=== PATIENT | male | born 1950 | race Caucasian/White ===

== ENCOUNTER 2016-08-30 06:50 | Emergency (ER) | payer MEDICARE ==
[2016-08-30 07:05] VITALS: TEMP 98.2
--- NOTE | 2016-08-30 07:37 | C.PDOC ---
History Of Present Illness 66 yr old male presents to the ER with complaints of productive cough with green phlegm, sinus congestion and frontal sinus headache for the past 1 week. Patient denies fever, chest pain, SOB, nausea, vomiting, smoking, asthma, weakness or numbness. COUGH, SINUS MEGHAN X 1 WEEK. +FRONTAL SINUS DUKES. NO FEVER. DENIES HO SMOKE, ASTHMA. +PROD W GREEN PHLGEM EXAM NAD NONTOXIC HEENT +MILD SINUS MEGHAN, NO RHINORRHEA LUNGS CTA B/L NO W/R/R Time Seen by Provider: 08/30/16 07:32 Chief Complaint (Nursing): Cough, Cold, Congestion History Per: Patient History/Exam Limitations: no limitations Onset/Duration Of Symptoms: Persistent (1 week) Current Symptoms Are (Timing): Still Present Sick Contacts (Context): None Recent travel outside of the [place]: No Past Medical History Reviewed: Historical Data, Nursing Documentation, Vital Signs Vital Signs: Last Vital Signs Temp 98.2 F 08/30/16 06:58 Pulse 85 08/30/16 06:58 Resp 22 08/30/16 06:58 BP 179/106 H 08/30/16 06:58 Pulse Ox 95 08/30/16 08:01 - Medical History PMH: HTN (taking meds sometimes) Family History: States: No Known Family Hx - Social History Hx Tobacco Use: No Hx Alcohol Use: Yes Hx Substance Use: No - Immunization History Hx Tetanus Toxoid Vaccination: No Hx Influenza Vaccination: Yes Hx Pneumococcal Vaccination: No Review Of Systems Except As Marked, All Systems Reviewed And Found Negative. Constitutional: Negative for: Fever ENT: Positive for: Other ((+) Sinus congestion ) Cardiovascular: Negative for: Chest Pain Respiratory: Positive for: Cough (with green phelgm). Negative for: Shortness of Breath Gastrointestinal: Negative for: Nausea, Vomiting Neurological: Positive for: Headache (Frontal sinus headache ). Negative for: Weakness, Numbness Physical Exam - Physical Exam Appears: Non-toxic, No Acute Distress Skin: Warm, Dry, No Rash Head: Atraumatic, Normacephalic Eye(s): bilateral: Normal Inspection, PERRL, EOMI Ear(s): Bilateral: Normal Nose: No Discharge, Other ((+) Mild sinus congestion ) Oral Mucosa: Moist Throat: Normal, No Erythema, No Exudate, No Drooling Neck: Normal, Normal ROM, Supple Chest: Symmetrical, No Tenderness Cardiovascular: Rhythm Regular, No Friction Rub, No Murmur Respiratory: Normal Breath Sounds, No Rales, No Rhonchi, No Stridor, No Wheezing Gastrointestinal/Abdominal: Normal Exam, Soft, No Tenderness, No Guarding, No Rebound Extremity: Normal ROM, No Swelling Neurological/Psych: Oriented x3, Normal Speech, Normal Motor Gait: Steady ED Course And Treatment O2 Sat by Pulse Oximetry: 95 Pulse Ox Interpretation: Normal - Radiology CXR: Interpreted by Me CXR Interpretation: Yes: No Acute Disease Medical Decision Making Medical Decision Making: PLAN: * CXR Disposition Counseled Patient/Family Regarding: Studies Performed, Diagnosis, Need For Followup, Rx Given - Disposition Referrals: [facility] [Outside] [facility] [Outside] Disposition: HOME/ ROUTINE Disposition Time: 08:41 Condition: GOOD Prescriptions: Oxymetazoline 0.05% [Oxymetazoline HCl 30 Ml] 3 ml NS BID #1 bottle Benzonatate [Tessalon Perle] 200 mg PO TID PRN #21 capsule PRN Reason: Cough Instructions: Sinusitis (ED), Acute Bronchitis (ED) Forms: Work Excuse Print Language: ROMANSH - Clinical Impression Clinical Impression: Sinusitis, Bronchitis - Scribe Statement The provider has reviewed the documentation as recorded by the Rosanna Tolliver Provider Attestation: All medical record entries made by the Calvinibdemetrius were at my direction and personally dictated by me. I have reviewed the chart and agree that the record accurately reflects my personal performance of the history, physical exam, medical decision making, and the department course for this patient. I have also personally directed, reviewed, and agree with the discharge instructions and disposition.
[2016-08-30 08:52] VITALS: BP 153/93; PULSE 75; RESP 18; O2SAT 98
--- NOTE | 2016-08-30 12:37 | RAD ---
HISTORY: cough COMPARISON: Bold TECHNIQUE: Chest PA and lateral FINDINGS: LUNGS: No active pulmonary disease. PLEURA: No significant pleural effusion identified. No pneumothorax apparent. CARDIOVASCULAR: Normal. OSSEOUS STRUCTURES: Minor multilevel degenerative spondylosis of the thoracic spine VISUALIZED UPPER ABDOMEN: Normal. OTHER FINDINGS: None. IMPRESSION: No active disease.
== END 2016-08-30 08:53 | disposition home or self-care (01) ==
LOC: C.ER 06:50
DX: J40 Bronchitis, not specified as acute or chronic (principal); J32.9 Chronic sinusitis, unspecified

== ENCOUNTER 2018-10-16 11:47 | Emergency (ER) | payer MEDICARE ==
[2018-10-16 11:59] VITALS: RESP 18; TEMP 98.9
--- NOTE | 2018-10-16 13:36 | C.PDOC ---
History Of Present Illness 68 y/o male, with history of hypertension and anxiety, comes in to ED complaining of one week history of not being able to sleep and ran out of ativan 4 days ago. Also complains of whole body weakness for the past week. Patient is lying down comfortably and has an empty bottle of Ativan 1mg TID one month supply #90 from 08/28/[address] Canales. Time Seen by Provider: 10/16/18 13:27 Chief Complaint (Nursing): Weakness/Neurological Deficit History Per: Patient History/Exam Limitations: no limitations Onset/Duration Of Symptoms: Days Current Symptoms Are (Timing): Still Present Past Medical History Reviewed: Historical Data, Nursing Documentation, Vital Signs Vital Signs: Last Vital Signs Temp 98.9 F 10/16/18 11:55 Pulse 72 10/16/18 11:55 Resp 18 10/16/18 11:55 BP 143/85 10/16/18 11:55 Pulse Ox 98 10/16/18 11:55 Primary Care Provider: Jacinto Vieyra - Medical History PMH: Anxiety, Benign Prostatic Hyperplasia, HTN (taking meds sometimes), Hypercholesterolemia Denies: Chronic Kidney Disease Family History: States: No Known Family Hx - Social History Hx Tobacco Use: No Hx Alcohol Use: Yes Hx Substance Use: No - Immunization History Hx Tetanus Toxoid Vaccination: No Hx Influenza Vaccination: Yes Hx Pneumococcal Vaccination: No Review Of Systems Constitutional: Positive for: Weakness, Other (Difficulty sleeping). Negative for: Fever, Chills Cardiovascular: Negative for: Chest Pain Respiratory: Negative for: Cough, Shortness of Breath Gastrointestinal: Negative for: Nausea, Vomiting, Abdominal Pain Genitourinary: Negative for: Dysuria Skin: Negative for: Rash Neurological: Negative for: Weakness, Numbness Physical Exam - Physical Exam Appears: Non-toxic, No Acute Distress Skin: Warm, Dry Head: Normacephalic Eye(s): bilateral: PERRL Oral Mucosa: Moist Neck: Supple Cardiovascular: Rhythm Regular, No Murmur Respiratory: No Rales, No Rhonchi, No Wheezing, Other (clear to auscultation bilaterally) Gastrointestinal/Abdominal: Soft, No Tenderness Extremity: Bilateral: Atraumatic, Normal Color And Temperature Neurological/Psych: Oriented x3, Normal Speech, Normal Cognition, Normal Cranial Nerves, Normal Motor, Normal Sensation ED Course And Treatment - Laboratory Results Result Diagrams: 10/16/18 13:57 10/16/18 13:57 O2 Sat by Pulse Oximetry: 98 (RA) Pulse Ox Interpretation: Normal - CT Scan/US head CT Other Rad Studies (CT/US): Read By Radiologist, Radiology Report Reviewed CT/US Interpretation: IMPRESSION: 1. 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 No evidence for obstructive hydrocephalus. 2. 3.6 x 2.4 x 4.1 cm left paramedian retro cerebellar CSF density lesion is statistically most compatible with an arachnoid cyst. 3. Mild age-related global parenchymal volume loss. Medical Decision Making Medical Decision Making: Plan: --Head CT --EKG --UA --Labs 1455 pt resting comfortably on stretcher. no acute distress. labs, urine and head ct normal. spoke with pt's psychiatrist Dr Canales; sts pt can come to office tomorrow for medication refill. Disposition Counseled Patient/Family Regarding: Studies Performed, Diagnosis, Need For Followup, Rx Given - Disposition Referrals: Jacinto Vieyra MD [Medical Doctor] - Sterling Bojorquez MD [Medical Doctor] - Disposition: HOME/ ROUTINE Disposition Time: 15:49 Condition: GOOD Additional Instructions: Rachel ms lquidos. Usted jorge vinicius estevez de benadryl (difenhidramina) a la hora de acostarse para ayudarlo a dormir. Hernan un seguimiento con el Dr. Jose Daniel godfrey en [place] consultorio para volver a surtir maxine medicamentos y hernan vinicius josephine de seguimiento con jeromy parekh recomendamos que hernan un seguimiento en la clnica o con velasquez mdico para un examen general y vinicius revisin del medicamento para la presin arterial. Drink more fluids. You make take one table of benadryl (diphenhydramine) at bedtime to help you sleep. Follow up with Dr Sky tomorrow in his office for medication refill and make a follow up appointment with him, also recommend you follow up with medical clinic or your doctor for general check up and review of blood pressure medicine. Forms: [employer] (Wallisian), General Discharge Instructions - Clinical Impression Clinical Impression: Fatigue - PA / CONSULTING ANALYST / Resident Statement MD/DO has reviewed & agrees with the documentation as recorded. - Scribe Statement The provider has reviewed the documentation as recorded by the Scribe Madina Arciniega All medical record entries made by the Calvinibe were at my direction and personally dictated by me. I have reviewed the chart and agree that the record accurately reflects my personal performance of the history, physical exam, medical decision making, and the department course for this patient. I have also personally directed, reviewed, and agree with the discharge instructions and disposition.
[2018-10-16 14:03] LABS: BASO # 0.1 K/uL (0.0-0.2); BASO % 0.8 % (0.0-2.0); EOS % 0.2 % (0.0-4.0); HEMOGLOBIN 14.2 g/dL (12.0-18.0); LYMPH # 2.1 K/uL (1.0-4.3); LYMPH % 25.2 % (20.0-40.0); MEAN CORPUSCULAR HEMOGLOBIN 31.3 pg (27.0-31.0); MEAN CORPUSCULAR HGB CONC 35.6 g/dL (33.0-37.0); MEAN PLATELET VOLUME 7.5 fL (7.2-11.7); MONO # 0.4 K/uL (0.0-0.8); MONO % 4.3 % (0.0-10.0); NEUT # 5.7 K/uL (1.8-7.0); NEUT % 69.5 % (50.0-75.0); NRBC % 0.1 % (0.0-2.0); RBC 4.54 Mil/uL (4.40-5.90); RED CELL DISTRIBUTION WIDTH 13.6 % (11.5-14.5)
[2018-10-16 14:06] LABS: WHITE BLOOD COUNT 8.2 K/uL (4.8-10.8)
--- NOTE | 2018-10-16 14:33 | CT ---
Date of service: 10/16/2018 PROCEDURE: CT HEAD WITHOUT CONTRAST. HISTORY: Dizziness COMPARISON: None available. TECHNIQUE: Axial computed tomography images were obtained through the head/brain without intravenous contrast. Radiation dose: Total exam DLP = 1033.41 mGy-cm. This CT exam was performed using one or more of the following dose reduction techniques: Automated exposure control, adjustment of the mA and/or kV according to patient size, and/or use of iterative reconstruction technique. FINDINGS: HEMORRHAGE: No intracranial hemorrhage. BRAIN: Solano-white matter differentiation is preserved. There is a 1.4 x 1.4 cm well-circumscribed round hyperdense lesion at the foramen Rojas. There is a 3.6 x 2.4 x 4.1 cm CSF density extra-axial mass in the left paramedian retrocerebellar region. There is mass effect or abnormal extra-axial fluid collection. There is no territorial infarction. VENTRICLES: There is mild age-related global parenchymal volume loss and proportionate enlargement of the ventricles and cortical sulci. CALVARIUM: There is no calvarial fracture or extracranial soft tissue swelling. PARANASAL SINUSES: There is moderate mucoperiosteal thickening in the ethmoid air cells and maxillary sinuses and mucosal thickening with aerosolized secretions in the sphenoid sinus MASTOID AIR CELLS: Predominantly clear. OTHER FINDINGS: None. IMPRESSION: 1. 1.4 x 1.4 cm colloid cyst at the foraminal of Rojas. No evidence for obstructive hydrocephalus. 2. 3.6 x 2.4 x 4.1 cm left paramedian retro cerebellar CSF density lesion is statistically most compatible with an arachnoid cyst. 3. Mild age-related global parenchymal volume loss.
[2018-10-16 14:43] LABS: ALB/GLOB RATIO 1.7 (1.0-2.1); ALBUMIN 4.5 g/dL (3.5-5.0); ALT/SGPT 26 U/L (21-72); AST/SGOT 27 U/L (17-59); BLOOD UREA NITROGEN 16 mg/dL (9-20); CALCIUM 9.5 mg/dl (8.6-10.4); GFR NON-AFRICAN AMERICAN > 60
[2018-10-16] MEDS ORDERED: Sodium Chloride 0.9% 1,000 ML IV ONE (15:19)
[2018-10-16 15:20] LABS: URINE BILIRUBIN NEGATIVE (NEGATIVE); URINE BLOOD NEGATIVE (NEGATIVE); URINE CLARITY Clear (Clear); URINE COLOR Straw (YELLOW); URINE GLUCOSE (UA) NORMAL (Normal); URINE LEUKOCYTE ESTERASE NEG Leu/uL (Negative); URINE PROTEIN NEGATIVE (NEGATIVE); URINE UROBILINOGEN NORMAL mg/dL (0.2-1.0)
[2018-10-16] MEDS ORDERED: Sodium Chloride 0.9% 1,000 ML ONE (15:46)
[2018-10-16 15:57] VITALS: BP 120/84; PULSE 67; O2SAT 97
== END 2018-10-16 16:02 | disposition home or self-care (01) ==
LOC: C.ER 11:47
DX: R53.83 Other fatigue (principal); I10 Essential (primary) hypertension; E78.00 Pure hypercholesterolemia, unspecified; F41.9 Anxiety disorder, unspecified
CPT/HCPCS: 70450; 80053; 81001; 82948; 84484; 85025; 96360; 99285; J7030

== ENCOUNTER 2018-11-05 07:00 | Observation (INO) | payer MEDICARE ==
[2018-11-05] MEDS ORDERED: Aspirin 325 mg EC Tablets PO STA (07:45)
--- NOTE | 2018-11-05 07:48 | C.PDOC ---
History Of Present Illness 68 year old male presents to the emergency department with complaints of left- sided chest pain since last night. Patient reports a history of hypertension. He states that he has had this pain in the past; reports taking nothing for the pain. He denies history of diabetes or allergies to medicine. He also denies radiation of the pain. He denies fever, chills, shortness of breath, nausea, vomiting, diarrhea. Time Seen by Provider: 11/05/18 07:18 Chief Complaint (Nursing): Chest Pain History Per: Patient History/Exam Limitations: language barrier (Last Waxer: CHANA Fry) Onset/Duration Of Symptoms: Days (1) Current Symptoms Are (Timing): Still Present Quality: "Pain" Associated Symptoms: denies: Nausea, Dyspnea, Diaphoresis Exacerbating Factors: None Past Medical History Reviewed: Historical Data, Nursing Documentation, Vital Signs Vital Signs: Last Vital Signs Temp 97.8 F 11/05/18 07:27 Pulse 68 11/05/18 07:27 Resp 16 11/05/18 07:27 BP 155/81 H 11/05/18 07:27 Pulse Ox 99 11/05/18 07:27 Primary Care Provider: Jacinto Vieyra - Medical History PMH: Anxiety, Benign Prostatic Hyperplasia, HTN (taking meds sometimes), Hypercholesterolemia Denies: Chronic Kidney Disease Surgical History: No Surg Hx Family History: States: No Known Family Hx - Social History Hx Tobacco Use: No Hx Alcohol Use: Yes Hx Substance Use: No - Immunization History Hx Tetanus Toxoid Vaccination: No Hx Influenza Vaccination: Yes Hx Pneumococcal Vaccination: No Review Of Systems Except As Marked, All Systems Reviewed And Found Negative. Constitutional: Negative for: Fever, Chills Cardiovascular: Positive for: Chest Pain Respiratory: Negative for: Cough, Shortness of Breath Gastrointestinal: Negative for: Nausea, Vomiting, Abdominal Pain, Diarrhea Physical Exam - Physical Exam Appears: Non-toxic, No Acute Distress Skin: Normal Color, Warm, Dry Head: Atraumatic, Normacephalic Eye(s): bilateral: Normal Inspection Neck: Normal, Supple Chest: Symmetrical, No Tenderness Cardiovascular: Rhythm Regular, No Murmur Respiratory: Normal Breath Sounds, No Rales, No Rhonchi, No Wheezing Gastrointestinal/Abdominal: Soft, No Tenderness, No Guarding, No Rebound Extremity: Normal ROM Neurological/Psych: Oriented x3, Normal Speech, Normal Cognition ED Course And Treatment - Laboratory Results Result Diagrams: 11/05/18 07:47 11/05/18 07:47 ECG Rhythm: Sinus Rhythm ECG Interpretation: Normal Interpretation Of ECG: Normal intervals, normal axis. Rate From EC O2 Sat by Pulse Oximetry: 99 (RA) Pulse Ox Interpretation: Normal Medical Decision Making Medical Decision Making: Plan: Chemistry CBC CXR Aspirin 325mg PO Nitrostat Disposition Counseled Patient/Family Regarding: Studies Performed, Diagnosis - Disposition Disposition: HOSPITALIZED Disposition Time: 10:50 Condition: STABLE - Clinical Impression Clinical Impression: Chest pain - Scribe Statement The provider has reviewed the documentation as recorded by the Scribe Provider Attestation: All medical record entries made by the Scribe were at my direction and personally dictated by me. I have reviewed the chart and agree that the record accurately reflects my personal performance of the history, physical exam, m edical decision making, and the department course for this patient. I have also personally directed, reviewed, and agree with the discharge instructions and disposition.
[2018-11-05 07:51] LABS: HEMOGLOBIN 14.8 g/dL (12.0-18.0); MEAN CELL VOLUME 87.8 fL (80.0-94.0); MEAN CORPUSCULAR HEMOGLOBIN 31.1 pg (27.0-31.0); MEAN CORPUSCULAR HGB CONC 35.4 g/dL (33.0-37.0); MEAN PLATELET VOLUME 7.5 fL (7.2-11.7); RBC 4.75 Mil/uL (4.40-5.90); RED CELL DISTRIBUTION WIDTH 13.7 % (11.5-14.5); WHITE BLOOD COUNT 8.2 K/uL (4.8-10.8)
[2018-11-05 08:18] LABS: CK-MB 3.32 ng/mL (0.0-3.38)
[2018-11-05 08:30] LABS: ALB/GLOB RATIO 1.3 (1.0-2.1); ALBUMIN 4.2 g/dL (3.5-5.0); ALT/SGPT 32 U/L (21-72); AST/SGOT 28 U/L (17-59); BLOOD UREA NITROGEN 16 mg/dL (9-20); CALCIUM 9.5 mg/dl (8.6-10.4); GFR NON-AFRICAN AMERICAN > 60
[2018-11-05] MEDS: Potassium Chloride 20 mEq ER Tab PO SCH (12:36)
[2018-11-05] MEDS: Enoxaparin 40 mg Syringe SC SCH (12:37)
[2018-11-05] MEDS: Pantoprazole 40 mg EC Tab PO SCH (12:54)
[2018-11-05 13:29] LABS: HDL CHOLESTEROL 67 mg/dL (30-70)
[2018-11-05 13:40] LABS: LDL CHOLESTEROL 96 mg/dL (0-129)
[2018-11-05 13:42] LABS: CK-MB 2.48 ng/mL (0.0-3.38)
[2018-11-05 16:07] LABS: BARBITURATES, UR NEGATIVE (NEGATIVE); BENZODIAZEPINES, UR NEGATIVE (NEGATIVE); OPIATES, UR NEGATIVE (NEGATIVE); PHENCYCLIDINE, UR NEGATIVE (NEGATIVE)
--- NOTE | 2018-11-05 17:19 | RAD ---
Date of service: 11/05/2018 PROCEDURE: CHEST RADIOGRAPH, 1 VIEW HISTORY: chest pain COMPARISON: 08/30/2026 FINDINGS: LUNGS: Clear. PLEURA: No pneumothorax or pleural fluid seen. CARDIOVASCULAR: No aortic atherosclerotic calcification present. Normal. OSSEOUS STRUCTURES: No significant abnormalities. VISUALIZED UPPER ABDOMEN: Normal. OTHER FINDINGS: None. IMPRESSION: No active disease.
--- NOTE | 2018-11-05 22:23 | CP.PCM.CON ---
History of Present Illness - History of Present Illness History of Present Illness: CC: Chest Pain 68 year old male presents to the emergency department with complaints of left- sided chest pain since last night. Patient reports a history of hypertension. He states that he has had this pain in the past; reports taking nothing for the pain. He denies history of diabetes or allergies to medicine. He also denies radiation of the pain. He denies fever, chills, shortness of breath, nausea, vomiting, diarrhea. Chief Complaint (Nursing): Chest Pain History Per: Patient History/Exam Limitations: language barrier (Construction Assistant: Logistics Intern) Onset/Duration Of Symptoms: Days (1) Current Symptoms Are (Timing): Still Present Quality: "Pain" Associated Symptoms: denies: Nausea, Dyspnea, Diaphoresis Exacerbating Factors: None Past Medical History Reviewed: Historical Data, Nursing Documentation, Vital Signs Vital Signs: Last Vital Signs Temp 97.8 F 11/05/18 07:27 Pulse 68 11/05/18 07:27 Resp 16 11/05/18 07:27 BP 155/81 H 11/05/18 07:27 Pulse Ox 99 11/05/18 07:27 Primary Care Provider: Jacinto Vieyra - Medical History PMH: Anxiety, Benign Prostatic Hyperplasia, HTN (taking meds sometimes), Hypercholesterolemia Denies: Chronic Kidney Disease Surgical History: No Surg Hx Family History: States: No Known Family Hx - Social History Hx Tobacco Use: No Hx Alcohol Use: Yes Hx Substance Use: No - Immunization History Hx Tetanus Toxoid Vaccination: No Hx Influenza Vaccination: Yes Hx Pneumococcal Vaccination: No Review Of Systems Except As Marked, All Systems Reviewed And Found Negative. Constitutional: Negative for: Fever, Chills Cardiovascular: Positive for: Chest Pain Respiratory: Negative for: Cough, Shortness of Breath Gastrointestinal: Negative for: Nausea, Vomiting, Abdominal Pain, Diarrhea Physical Exam - Physical Exam Appears: Non-toxic, No Acute Distress Skin: Normal Color, Warm, Dry Head: Atraumatic, Normacephalic Eye(s): bilateral: Normal Inspection Neck: Normal, Supple Chest: Symmetrical, No Tenderness Cardiovascular: Rhythm Regular, No Murmur Respiratory: Normal Breath Sounds, No Rales, No Rhonchi, No Wheezing Gastrointestinal/Abdominal: Soft, No Tenderness, No Guarding, No Rebound Extremity: Normal ROM Neurological/Psych: Oriented x3, Normal Speech, Normal Cognition Past Patient History - Past Social History Smoking Status: Never Smoked - CARDIAC Hx Hypercholesterolemia: Yes Hx Hypertension: Yes (taking meds sometimes) - PULMONARY Hx Respiratory Disorders: No - NEUROLOGICAL Hx Neurological Disorder: No - HEENT Hx HEENT Problems: No - RENAL Hx Chronic Kidney Disease: No - ENDOCRINE/METABOLIC Hx Endocrine Disorders: No - HEMATOLOGICAL/ONCOLOGICAL Hx Blood Disorders: No - INTEGUMENTARY Hx Dermatological Problems: No - MUSCULOSKELETAL/RHEUMATOLOGICAL Hx Musculoskeletal Disorders: No - GASTROINTESTINAL Hx Gastrointestinal Disorders: No - GENITOURINARY/GYNECOLOGICAL Hx Genitourinary Disorders: Yes - PSYCHIATRIC Hx Anxiety: Yes Hx Substance Use: No - SURGICAL HISTORY Hx Surgeries: Yes Other/Comment: PROSTATE BIOPSY - ANESTHESIA Hx Anesthesia: Yes Hx Anesthesia Reactions: No Meds Allergies/Adverse Reactions: Allergies Allergy/AdvReac Type Severity Reaction Status Date / Time No Known Allergies Allergy Verified 11/05/18 07:30 - Medications Medications: Current Medications Aspirin (Aspirin Chewable) 81 mg PO DAILY COUNT INCLUDES [facility] Last Admin: 11/05/18 12:37 Dose: Not Given Enoxaparin Sodium (Lovenox) 40 mg SC DAILY COUNT INCLUDES THE [facility] Last Admin: 11/05/18 12:37 Dose: 40 mg Lorazepam (Ativan) 1 mg PO TID PRN PRN Reason: Anxiety Last Admin: 11/05/18 17:58 Dose: 1 mg Losartan Potassium (Cozaar) 100 mg PO DAILY COUNT INCLUDES THE [facility] Last Admin: 11/05/18 12:36 Dose: 100 mg Metoprolol Tartrate (Lopressor) 25 mg PO BID COUNT INCLUDES THE [facility] Last Admin: 11/05/18 17:57 Dose: 25 mg Pantoprazole Sodium (Protonix Ec Tab) 40 mg PO DAILY COUNT INCLUDES THE [facility] Last Admin: 11/05/18 12:54 Dose: 40 mg Pneumococcal Polyvalent Vaccine (Pneumovax 23 Vaccine) 0.5 ml IM .ONCE ONE Stop: 11/07/18 10:01 Potassium Chloride (K-Dur 20 Meq Er Tab) 40 meq PO DAILY COUNT INCLUDES THE [facility] Last Admin: 11/05/18 12:36 Dose: 40 meq Rosuvastatin Calcium (Crestor) 10 mg PO HS COUNT INCLUDES THE [facility] Last Admin: 11/05/18 21:23 Dose: 10 mg Zolpidem Tartrate (Ambien) 5 mg PO HS PRN PRN Reason: Insomnia Last Admin: 11/05/18 21:23 Dose: 5 mg Results - Vital Signs Recent Vital Signs: Last Vital Signs Temp 98.0 F 11/05/18 16:24 Pulse 74 11/05/18 16:24 Resp 20 11/05/18 16:24 BP 148/77 11/05/18 17:57 Pulse Ox 97 11/05/18 16:24 - Labs Result Diagrams: 11/05/18 07:47 11/05/18 07:47 Labs: Laboratory Results - last 24 hr 11/05/18 11/05/18 11/05/18 07:47 07:47 13:12 WBC 8.2 RBC 4.75 Hgb 14.8 Hct 41.7 MCV 87.8 MCH 31.1 H MCHC 35.4 RDW 13.7 Plt Count 286 MPV 7.5 Sodium 136 Potassium 3.5 L Chloride 101 Carbon Dioxide 26 Anion Gap 12 BUN 16 Creatinine 0.8 Est GFR ( Amer) > 60 Est GFR (Non-Af Amer) > 60 Random Glucose 100 Hemoglobin A1c Calcium 9.5 Total Bilirubin 0.9 AST 28 ALT 32 Alkaline Phosphatase 75 Total Creatine Kinase 148 117 CK-MB (Mass) 3.32 2.48 Troponin I < 0.0120 < 0.0120 Total Protein 7.4 Albumin 4.2 Globulin 3.2 Albumin/Globulin Ratio 1.3 Triglycerides 80 Cholesterol 175 LDL Cholesterol Direct 96 HDL Cholesterol 67 TSH 3rd Generation 0.86 Urine Opiates Screen Urine Methadone Screen Ur Barbiturates Screen Ur Phencyclidine Scrn Ur Amphetamines Screen U Benzodiazepines Scrn U Oth Cocaine Metabols U Cannabinoids Screen 11/05/18 11/05/18 11/05/18 13:12 15:40 19:20 WBC RBC Hgb Hct MCV MCH MCHC RDW Plt Count MPV Sodium Potassium Chloride Carbon Dioxide Anion Gap BUN Creatinine Est GFR ( Amer) Est GFR (Non-Af Amer) Random Glucose Hemoglobin A1c 5.3 Calcium Total Bilirubin AST ALT Alkaline Phosphatase Total Creatine Kinase CK-MB (Mass) Troponin I < 0.0120 Total Protein Albumin Globulin Albumin/Globulin Ratio Triglycerides Cholesterol LDL Cholesterol Direct HDL Cholesterol TSH 3rd Generation Urine Opiates Screen Negative Urine Methadone Screen Negative Ur Barbiturates Screen Negative Ur Phencyclidine Scrn Negative Ur Amphetamines Screen Negative U Benzodiazepines Scrn Negative U Oth Cocaine Metabols Negative U Cannabinoids Screen Negative Assessment & Plan - Assessment and Plan (Free Text) Assessment: 1. Chest Pain 2. HTN 3. Hyperlipidemia Check ECHO and Stress Test on Tuesday
[2018-11-06] MEDS: Potassium Chloride 20 mEq ER Tab PO SCH (09:21)
[2018-11-06] MEDS: Pantoprazole 40 mg EC Tab PO SCH (09:21)
[2018-11-06] MEDS: Enoxaparin 40 mg Syringe SC SCH (09:22)
--- NOTE | 2018-11-06 19:51 | CP.PCM.PN ---
Subjective - Date & Time of Evaluation Date of Evaluation: 11/06/18 Time of Evaluation: 19:50 - Subjective Subjective: Patient seen and evaluated No new events noted Review Of Systems Except As Marked, All Systems Reviewed And Found Negative. Constitutional: Negative for: Fever, Chills Cardiovascular: Positive for: Chest Pain Respiratory: Negative for: Cough, Shortness of Breath Gastrointestinal: Negative for: Nausea, Vomiting, Abdominal Pain, Diarrhea Physical Exam - Physical Exam Appears: Non-toxic, No Acute Distress Skin: Normal Color, Warm, Dry Head: Atraumatic, Normacephalic Eye(s): bilateral: Normal Inspection Neck: Normal, Supple Chest: Symmetrical, No Tenderness Cardiovascular: Rhythm Regular, No Murmur Respiratory: Normal Breath Sounds, No Rales, No Rhonchi, No Wheezing Gastrointestinal/Abdominal: Soft, No Tenderness, No Guarding, No Rebound Extremity: Normal ROM Neurological/Psych: Oriented x3, Normal Speech, Normal Cognition Assessment & Plan - Assessment and Plan (Free Text) Assessment: 1. Chest Pain 2. HTN 3. Hyperlipidemia Check ECHO and Stress Test in am Objective - Vital Signs/Intake and Output Vital Signs (last 24 hours): Temp Pulse Resp BP Pulse Ox 97.7 F 62 203 H 123/69 97 11/06/18 15:00 11/06/18 19:33 11/06/18 15:00 11/06/18 17:47 11/06/18 15:00 - Medications Medications: Current Medications Aspirin (Aspirin Chewable) 81 mg PO DAILY [facility] Last Admin: 11/06/18 09:21 Dose: 81 mg Enoxaparin Sodium (Lovenox) 40 mg SC DAILY [facility] Last Admin: 11/06/18 09:22 Dose: 40 mg Lorazepam (Ativan) 1 mg PO TID PRN PRN Reason: Anxiety Last Admin: 11/05/18 17:58 Dose: 1 mg Losartan Potassium (Cozaar) 100 mg PO DAILY [facility] Last Admin: 11/06/18 09:21 Dose: 100 mg Metoprolol Tartrate (Lopressor) 25 mg PO BID [facility] Last Admin: 11/06/18 17:47 Dose: 25 mg Pantoprazole Sodium (Protonix Ec Tab) 40 mg PO DAILY [facility] Last Admin: 11/06/18 09:21 Dose: 40 mg Pneumococcal Polyvalent Vaccine (Pneumovax 23 Vaccine) 0.5 ml IM .ONCE ONE Stop: 11/07/18 10:01 Potassium Chloride (K-Dur 20 Meq Er Tab) 40 meq PO DAILY [facility] Last Admin: 11/06/18 09:21 Dose: 40 meq Rosuvastatin Calcium (Crestor) 10 mg PO HS [facility] Last Admin: 11/05/18 21:23 Dose: 10 mg Zolpidem Tartrate (Ambien) 5 mg PO HS PRN PRN Reason: Insomnia Last Admin: 11/05/18 21:23 Dose: 5 mg - Labs Labs: 11/05/18 07:47 11/05/18 07:47
--- NOTE | 2018-11-06 20:59 | PCM.PSYCH ---
Initial Psychiatric Evaluation - Initial Psychiatric Evaluation Type of Admission: Voluntary Legal Status: Capacity Chief Complaint (in patient's own words): "I have anxiety" Patient's Reaction to Hospitalization: Patient is a 68 year old Male, a consult referral for anxiety. The evaluation was completed using [employer] with a erp manager. Patient reports that he has a history of anxiety and is currently being treated by his p sychiatrist Dr. Dhiraj Bojorquez with Ativan. Patient also reports that he was once taking Sertraline, but he stopped because it was making him more anxious. Patient reports that his anxiety is usually precipitated by his sleep, he reports having breathing problems when he sleep as he snores, and he gets SOB and gets panic attacks. Patient denies any past psychiatric hospitalizations, he denies any suicide or suicide attempts in the past. He denies depressive mood, denies delusions, paranoid or hallucination. He reports that his appetite is good. Patient currently lives alone, and is unemployed, but his daughter lives close to his house, his [place], he reports that his family are supportive. Denies SI/HI at this time of evaluation PsychHx: Anxiety - Takes Ativan, drinks alcohol socially, denies tobacco use, denies substance use PMhx: BPH, HTN, Hypercholestrolemia FamHx: Denies Current Medications: Active Medications Generic Name Dose Route Start Last Admin Trade Name Freq PRN Reason Stop Dose Admin Aspirin 81 mg 11/05/18 12:15 11/06/18 09:21 Aspirin Chewable PO 81 mg DAILY [facility] Administration Enoxaparin Sodium 40 mg 11/05/18 12:15 11/06/18 09:22 Lovenox SC 40 mg DAILY [facility] Administration Lorazepam 1 mg 11/05/18 12:11 11/05/18 17:58 Ativan PO 1 mg TID PRN Administration Anxiety Losartan Potassium 100 mg 11/05/18 12:15 11/06/18 09:21 Cozaar PO 100 mg DAILY [facility] Administration Metoprolol Tartrate 25 mg 11/05/18 18:00 11/06/18 17:47 Lopressor PO 25 mg BID [facility] Administration Pantoprazole Sodium 40 mg 11/05/18 13:00 11/06/18 09:21 Protonix Ec Tab PO 40 mg DAILY [facility] Administration Pneumococcal Polyvalent Vaccine 0.5 ml 11/07/18 10:00 Pneumovax 23 Vaccine IM 11/07/18 10:01 .ONCE ONE Potassium Chloride 40 meq 11/05/18 12:15 11/06/18 09:21 K-Dur 20 Meq Er Tab PO 40 meq DAILY [facility] Administration Rosuvastatin Calcium 10 mg 11/05/18 22:00 11/05/18 21:23 Crestor PO 10 mg HS [facility] Administration Zolpidem Tartrate 5 mg 11/05/18 14:07 11/05/18 21:23 Ambien PO 5 mg HS PRN Administration Insomnia Past Psychiatric History - Past Psychiatric History Pertinent Medical Hx (Current Medical&Sleep Prob, Allergies): Allergies Allergy/AdvReac Type Severity Reaction Status Date / Time No Known Allergies Allergy Verified 11/05/18 07:30 LORazepam [Ativan] 1 mg PO TID PRN 10/16/18 Lisinopril/Hydrochlorothiazide [Lisinopril-Hctz 20-12.5 mg Tab] 1 each PO DAILY 10/16/18 Metoprolol Tartrate 25 mg PO BID 10/16/18 Simvastatin 20 mg PO DAILY 10/16/18 Valsartan/Hydrochlorothiazide [Valsartan-Hctz 160-12.5 mg Tab] 160 mg PO DAILY 11/05/18 Review of Systems - Psychiatric Psychiatric: As Per HPI, Anxiety, Behavioral Changes, Difficulty Concentrating Mental Status Examination - Personal Presentation Personal Presentation: Looks stated age - Affect Affect: Broad - Motor Activity Motor Activity: Calm - Reliability in Providing Information Reliability in Providing Information: Fair - Speech Speech: Relevant, Coherent - Mood Mood: Anxious, Neutral - Formal Thought Process Formal Thought Process: No Impairment - Obsessions/Compulsions Obsessions: None Compulsions: None - Cognitive Functions Orientation: Person, Place, Situation, Time Sensorium: Alert Attention/Concentration: Attentive Estimate of Intelligence: Average Judgement: Intact, as evidence by: Good judgement Memory: Recent intact, as evidence by: 3/3 object recall - Risk Risk: Diminished functioning - Strength & Assets Inventory Strength & Assets Inventory: Life experience - Limitations Limitations: Living alone DSM 5 DX - DSM 5 DSM 5 Diagnosis: Generalized anxiety disorder severe - Recommended/Plan of Treatment Treatment Recommendations and Plan of Treatment: Start home medication - Ativan 1 mg TID, PRN anxiety As need medications All risks, benefits and alternatives of the meds discussed, and the pt agreed and understood. Psychoeducation and support daily Encourage compliance with meds and after care Refer to outpatient program Teach healthy lifestyle methods, i.e. diet, exercise, meditation 32 min
--- NOTE | 2018-11-06 22:05 | CP.PCM.HP ---
Present on Admission - Present on Admission Any Indicators Present on Admission: No Past Patient History - Past Social History Smoking Status: Never Smoked - CARDIAC Hx Hypercholesterolemia: Yes Hx Hypertension: Yes (taking meds sometimes) - PULMONARY Hx Respiratory Disorders: No - NEUROLOGICAL Hx Neurological Disorder: No - HEENT Hx HEENT Problems: No - RENAL Hx Chronic Kidney Disease: No - ENDOCRINE/METABOLIC Hx Endocrine Disorders: No - HEMATOLOGICAL/ONCOLOGICAL Hx Blood Disorders: No - INTEGUMENTARY Hx Dermatological Problems: No - MUSCULOSKELETAL/RHEUMATOLOGICAL Hx Musculoskeletal Disorders: No - GASTROINTESTINAL Hx Gastrointestinal Disorders: No - GENITOURINARY/GYNECOLOGICAL Hx Genitourinary Disorders: Yes - PSYCHIATRIC Hx Anxiety: Yes Hx Substance Use: No - SURGICAL HISTORY Hx Surgeries: Yes Other/Comment: PROSTATE BIOPSY - ANESTHESIA Hx Anesthesia: Yes Hx Anesthesia Reactions: No Meds Allergies/Adverse Reactions: Allergies Allergy/AdvReac Type Severity Reaction Status Date / Time No Known Allergies Allergy Verified 11/05/18 07:30 Results - Vital Signs Recent Vital Signs: Last Vital Signs Temp 97.8 F 11/06/18 22:00 Pulse 65 11/06/18 22:00 Resp 18 11/06/18 22:00 BP 133/78 11/06/18 22:00 Pulse Ox 97 11/06/18 15:00 - Labs Result Diagrams: 11/05/18 07:47 11/05/18 07:47 Labs: Laboratory Results - last 24 hr 11/06/18 02:52 Troponin I < 0.0120
--- NOTE | 2018-11-07 06:56 | HP ---
CHIEF COMPLAINT: Chest pain, weakness. HISTORY OF PRESENT ILLNESS: This is a 68-year-old male with history of anxiety, insomnia, and he takes anxiolytic as well as he drinks a lot of [id number] cough syrup to fall asleep. The patient currently when I did history and physical was extremely anxious, repetitive, asking questions repeatedly mostly same questions and on the day of admission, he developed left precordial chest pain, dull, non-radiating, not associated with diaphoresis or dizziness. He denies any chest pain with exertion. He denies any orthopnea or PND. He denies any history of cough, sore throat, or runny nose. He denies any history of fever, chills, or rigors. There is no history of dyspnea at rest or dyspnea on exertion. There is no history of nausea, vomiting, or diarrhea. There is no history of polyuria, polydipsia, or polyphagia. There is no history of hematuria or pyuria. He denies any joint pain or hip pain. He denies any tingling, numbness, or paraesthesia. PAST MEDICAL HISTORY: Hypertension, BPH, hyperlipidemia, and anxiety. SOCIAL HISTORY: He is nonsmoker, non EtOH user. CURRENT MEDICATIONS: At home, he is taking Diovan, Ativan, metoprolol, and Zocor. PHYSICAL EXAMINATION: GENERAL: An elderly male who is anxious, not in distress. VITAL SIGNS: Blood pressure 133/78, pulse 61, respiratory rate 18, temperature 97.8. SKIN: Senile turgor. No bruises. No purpura. No petechia. HEENT: Atraumatic and normocephalic. Negative pallor. Negative jaundice. Extraocular movements are intact. NECK: Supple. No JVD. No lymph nodes. No thyromegaly. No carotid bruit. CHEST WALL: Bilateral symmetrical expansion. No tenderness. LUNGS: Clear. No rales. No rhonchi. CARDIOVASCULAR SYSTEM: PMI not localized. S1 and S2, regular. No heave. No thrill. ABDOMEN: Soft and nontender. Bowel sounds are positive. RECTAL: No masses. No bleeding. EXTREMITIES: No clubbing, cyanosis, or edema. CENTRAL NERVOUS SYSTEM: Awake, alert, and oriented x3. Cranial nerves II through XII are normal. Power 5/5 x4. Plantars are downgoing. ASSESSMENT: 1. Chest pain, rule out myocardial infarction, rule out coronary artery disease. 2. Anxiety and insomnia. 3. Hypertension. PLAN: Admit. Detailed orders are written. Seen and examined. Willy Guevara MD
[2018-11-07 07:55] VITALS: O2SAT 97
[2018-11-07] MEDS ORDERED: Caffeine Citrated **INJ** 20 MG/ML IV ONE (07:56)
[2018-11-07 08:19] VITALS: RESP 20
[2018-11-07] MEDS ORDERED: Pneumococcal 23-Valent Vaccine IM ONE (10:00)
[2018-11-07] MEDS: Pantoprazole 40 mg EC Tab PO SCH (11:00)
[2018-11-07] MEDS: Potassium Chloride 20 mEq ER Tab PO SCH (11:00)
[2018-11-07] MEDS: Enoxaparin 40 mg Syringe SC SCH (11:00)
--- NOTE | 2018-11-07 15:10 | CP.PCM.PN ---
Subjective - Date & Time of Evaluation Date of Evaluation: 11/07/18 Time of Evaluation: 15:09 - Subjective Subjective: 68 year old male presents to the emergency department with complaints of left- sided chest pain since last night. Patient reports a history of hypertension. He states that he has had this pain in the past; reports taking nothing for the p ain. He denies history of diabetes or allergies to medicine. Pt seen and examined. VSS. Labs reviewed. Pt lying in bed comfortably. Pt Aox3, resp even and unlabored. Abdomen soft, non-tender. He also denies radiation of the pain. He denies fever, chills, shortness of breath, nausea, vomiting, diarrhea. Follow up with Dr. Guevara in 1 week - Evaluate for Sleep study Follow up with Dr. Fernando in 1 week Resume all home medications New prescriptions ASA 81mg PO daily Cozaar 100mg PO daily Protonix 40mg daily Metroprolol Succinate 25mg PO daily Ativan 5mg PO HS PRN sleep x 5 days Activity at tolerated Call Dr. Guevara or go to the emergancy room if symptoms return or worsen Discuss with patient and family at the bedside who agree and verbalized understanding Objective - Vital Signs/Intake and Output Vital Signs (last 24 hours): Temp Pulse Resp BP Pulse Ox 97.7 F 73 20 149/80 97 11/07/18 07:18 11/07/18 07:18 11/07/18 07:18 11/07/18 07:18 11/07/18 07:18 - Medications Medications: Current Medications Aspirin (Aspirin Chewable) 81 mg PO DAILY [facility] Last Admin: 11/07/18 11:00 Dose: Not Given Enoxaparin Sodium (Lovenox) 40 mg SC DAILY [facility] Last Admin: 11/07/18 11:00 Dose: Not Given Lorazepam (Ativan) 1 mg PO TID PRN PRN Reason: Anxiety Last Admin: 11/07/18 11:49 Dose: 1 mg Losartan Potassium (Cozaar) 100 mg PO DAILY [facility] Last Admin: 11/07/18 11:00 Dose: Not Given Metoprolol Tartrate (Lopressor) 25 mg PO BID [facility] Last Admin: 11/07/18 11:00 Dose: Not Given Pantoprazole Sodium (Protonix Ec Tab) 40 mg PO DAILY [facility] Last Admin: 11/07/18 11:00 Dose: Not Given Potassium Chloride (K-Dur 20 Meq Er Tab) 40 meq PO DAILY [facility] Last Admin: 11/07/18 11:00 Dose: Not Given Rosuvastatin Calcium (Crestor) 10 mg PO HS [facility] Last Admin: 11/06/18 21:59 Dose: 10 mg Zolpidem Tartrate (Ambien) 5 mg PO HS PRN PRN Reason: Insomnia Last Admin: 11/06/18 21:59 Dose: 5 mg - Labs Labs: 11/05/18 07:47 11/05/18 07:47 Assessment and Plan - Assessment and Plan (Free Text) Assessment: alert and oriented with no complaints. Daughter at bedside all questions and concerned addressed.
[2018-11-07 15:23] VITALS: PULSE 92
[2018-11-07 15:39] VITALS: BP 131/84; TEMP 97.9
--- NOTE | 2018-11-07 19:46 | CARD ---
APPROVED REPORT Date of service: 11/07/2018 EXAM: Two-dimensional and M-mode echocardiogram with Doppler and color Doppler. Other Information Quality : GoodRhythm : INDICATION Chest Pain RISK FACTORS Hypertension Hyperlipidemia 2D DIMENSIONS IVSd1.1 (0.7-1.1cm)LVDd4.3 (3.9-5.9cm) PWd0.8 (0.7-1.1cm)LA Buuwnm19 (18-58mL) LVDs2.3 (2.5-4.0cm)FS (%) 46.2 % LVEF (%)69.9 (>50%)LVEF (Sainz's)64.41 % IVC0.00 cm M-Mode DIMENSIONS RVDd1.40 (2.1-3.2cm)Left Atrium (MM)3.61 (2.5-4.0cm) IVSd0.98 (0.7-1.1cm)Aortic Root3.31 (2.2-3.7cm) LVDd4.88 (4.0-5.6cm)Aortic Cusp Exc.1.88 (1.5-2.0cm) PWd1.04 (0.7-1.1cm)FS (%) 31 % LVDs3.38 (2.0-3.8cm)LVEF (%)65 (>50%) Aortic Valve AI P 1/2 [id number] Mitral Valve MV E Mpvaocod32.5cm/sMV A Dvlbesgg51.1cm/sE/A ratio0.7 ZCIR813.78 cm/s TDI Lateral E' Peak V7.00cm/sMedial E' Peak V4.61cm/sE/Lateral E'7.4 E/Medial E'11.2 Tricuspid Valve TR Peak Uazvtncq449vu/sTR Peak Gr.41bjFjPKOS25gySp LEFT VENTRICLE The left ventricle is normal size. There is normal left ventricular wall thickness. The left ventricular function is normal. The left ventricular ejection fraction is within the normal range. There is normal LV segmental wall motion. Transmitral Doppler flow pattern is Grade I-abnormal relaxation pattern. RIGHT VENTRICLE The right ventricle is normal size. There is normal right ventricular wall thickness. The right ventricular systolic function is normal. ATRIA The left atrium size is normal. The right atrium size is normal. AORTIC VALVE The aortic valve is mildly thickened. There is trace aortic regurgitation. There is no aortic valvular stenosis. MITRAL VALVE The mitral valve is moderately thickened. There is no mitral valve stenosis. Mitral regurgitation is trace to mild. TRICUSPID VALVE There is trace to mild tricuspid regurgitation. GREAT VESSELS The aortic root is normal in size. The IVC is normal in size and collapses >50% with inspiration. PERICARDIAL EFFUSION There is no pericardial effusion. <Conclusion> There is normal left ventricular wall thickness. The left ventricular function is normal. The left ventricular ejection fraction is within the normal range. There is normal LV segmental wall motion. Transmitral Doppler flow pattern is Grade I-abnormal relaxation pattern. Mitral regurgitation is trace to mild. There is trace to mild tricuspid regurgitation. There is trace aortic regurgitation.
--- NOTE | 2018-11-07 20:43 | CARD ---
APPROVED REPORT Date of service: 11/06/2018 EKG Measurement Heart [id number] <Conclusion> Normal sinus rhythm Normal ECG
--- NOTE | 2018-11-07 22:15 | CP.PCM.DIS ---
Provider - Provider Date of Admission: 11/05/18 10:51 Attending physician: Willy Guevara MD Consults: 11/05/18 12:02 Cardiology Consult Routine Comment: Consulting Provider: Junior Fernando Consulting Physician: Junior Fernando Reason for Consult: chest pain Psychiatry Consult Routine Comment: Consulting Provider: Temitope Muñoz Consulting Physician: Temitope Muñoz Reason for Consult: anxiety Time Spent in preparation of Discharge (in minutes): 35 Hospital Course - Lab Results Lab Results: Most Recent Lab Values WBC 8.2 K/uL (4.8-10.8) 11/05/18 07:47 RBC 4.75 Mil/uL (4.40-5.90) 11/05/18 07:47 Hgb 14.8 g/dL (12.0-18.0) 11/05/18 07:47 Hct 41.7 % (35.0-51.0) 11/05/18 07:47 MCV 87.8 fL (80.0-94.0) 11/05/18 07:47 MCH 31.1 pg (27.0-31.0) H 11/05/18 07:47 MCHC 35.4 g/dL (33.0-37.0) 11/05/18 07:47 RDW 13.7 % (11.5-14.5) 11/05/18 07:47 Plt Count 286 K/uL (130-400) 11/05/18 07:47 MPV 7.5 fL (7.2-11.7) 11/05/18 07:47 Sodium 136 mmol/L (132-148) 11/05/18 07:47 Potassium 3.5 mmol/L (3.6-5.2) L 11/05/18 07:47 Chloride 101 mmol/L (98-107) 11/05/18 07:47 Carbon Dioxide 26 mmol/L (22-30) 11/05/18 07:47 Anion Gap 12 (10-20) 11/05/18 07:47 BUN 16 mg/dL (9-20) 11/05/18 07:47 Creatinine 0.8 mg/dL (0.8-1.5) 11/05/18 07:47 Est GFR ( Amer) > 60 11/05/18 07:47 Est GFR (Non-Af Amer) > 60 11/05/18 07:47 Random Glucose 100 mg/dL (75-110) 11/05/18 07:47 Hemoglobin A1c 5.3 % (4.2-6.5) 11/05/18 13:12 Calcium 9.5 mg/dl (8.6-10.4) 11/05/18 07:47 Total Bilirubin 0.9 mg/dL (0.2-1.3) 11/05/18 07:47 AST 28 U/L (17-59) 11/05/18 07:47 ALT 32 U/L (21-72) 11/05/18 07:47 Alkaline Phosphatase 75 U/L (38-126) 11/05/18 07:47 Total Creatine Kinase 117 U/L (55-170) 11/05/18 13:12 CK-MB (Mass) 2.48 ng/mL (0.0-3.38) 11/05/18 13:12 Troponin I < 0.0120 ng/mL (0.00-0.120) 11/06/18 02:52 Total Protein 7.4 g/dL (6.3-8.3) 11/05/18 07:47 Albumin 4.2 g/dL (3.5-5.0) 11/05/18 07:47 Globulin 3.2 gm/dL (2.2-3.9) 11/05/18 07:47 Albumin/Globulin Ratio 1.3 (1.0-2.1) 11/05/18 07:47 Triglycerides 80 mg/dL (0-149) 11/05/18 13:12 Cholesterol 175 mg/dL (0-199) 11/05/18 13:12 LDL Cholesterol Direct 96 mg/dL (0-129) 11/05/18 13:12 HDL Cholesterol 67 mg/dL (30-70) 11/05/18 13:12 TSH 3rd Generation 0.86 mIU/L (0.46-4.68) 11/05/18 13:12 Urine Opiates Screen Negative (NEGATIVE) 11/05/18 15:40 Urine Methadone Screen Negative (NEGATIVE) 11/05/18 15:40 Ur Barbiturates Screen Negative (NEGATIVE) 11/05/18 15:40 Ur Phencyclidine Scrn Negative (NEGATIVE) 11/05/18 15:40 Ur Amphetamines Screen Negative (NEGATIVE) 11/05/18 15:40 U Benzodiazepines Scrn Negative (NEGATIVE) 11/05/18 15:40 U Oth Cocaine Metabols Negative (NEGATIVE) 11/05/18 15:40 U Cannabinoids Screen Negative (NEGATIVE) 11/05/18 15:40 Discharge Plan - Discharge Medications Prescriptions: Zolpidem [Ambien] 5 mg PO PRN PRN #5 tab PRN Reason: Sleep Aspirin [Aspirin Chewable] 81 mg PO DAILY 30 Days #30 chew Losartan [Cozaar] 100 mg PO DAILY 30 Days tab Pantoprazole Sodium [Protonix] 40 mg PO DAILY 30 Days #30 ect - Follow Up Plan Condition: STABLE Disposition: HOME/ ROUTINE Instructions: Heart Healthy Diet, Chest Pain (DC), Aspirin, Losartan, Pantoprazole Additional Instructions: Follow up with Dr. Guevara in 1 week - Evaluate for Sleep study Follow up with Dr. Fernando in 2-3 weeks Resume all home medications New prescriptions ASA 81mg PO daily Cozaar 100mg PO daily Protonix 40mg daily Metroprolol Succinate 25mg PO daily Activity at tolerated Call Dr. Guevara or go to the emergancy room if symptoms return or worsen Discuss with patient and family at the bedside who agree and verbalized understanding Referrals: Junior Fernando MD [Staff Provider] - Wilyl Guevara MD [Staff Provider] -
--- NOTE | 2018-11-08 07:25 | DS ---
DISCHARGE DIAGNOSES: 1. Noncoronary chest pain. 2. Hypertension. 3. Generalized anxiety disorder. HISTORY OF PRESENT ILLNESS AND HOSPITAL COURSE: This is a 68-year-old male with history of anxiety and stress who came in as he has been trying to sleep and he has been drinking large quantity of cough syrup to fall asleep. He has also been taking Ativan. The patient was admitted to the floor. He underwent an echocardiogram and a stress test. Stress test results are pending. Echocardiogram is normal. Normal LV ejection fraction. The patient is for discharge. He will be followed up as outpatient. Condition upon discharge is stable. Cardiac enzymes x3 negative. Lipid profile benign, good HDL of 60 and minimal . He will be followed up closely. Willy Guevara MD
--- NOTE | 2018-11-08 07:42 | CARD ---
APPROVED REPORT Date of service: 11/05/2018 EKG Measurement Heart [id number] <Conclusion> Normal sinus rhythm Normal ECG
== END 2018-11-07 16:22 | disposition home or self-care (01) ==
LOC: C.ER 07:00 → C.9E 10:51 → C.5S 11:14
PROVIDERS: ADMIT Internal Medicine; ATTEND Internal Medicine
DX: R07.2 Precordial pain (principal); I10 Essential (primary) hypertension; E78.00 Pure hypercholesterolemia, unspecified; E78.5 Hyperlipidemia, unspecified; F41.1 Generalized anxiety disorder
CPT/HCPCS: 36415; 71045; 78452; 80053; 80061; 80324; 80345; 80346; 80349; 80353; 80358; 80361; 83036; 83992; 84443; 84484; 85027; 93005; 93017; 93306; 99285; A9502; G0378; J1650; J2785